=== PATIENT | male | born 1970 | race Caucasian/White ===

== ENCOUNTER 2018-02-05 05:48 | Inpatient (IN) | payer OTHER ==
[~2018-02-05] VITALS: Ht 167.6 cm; Wt 97.5 kg
[2018-02-05] MEDS ORDERED: CEFAZOLIN SODIUM 1 GM/D5W PM 50 ML IV SCH (07:05)
[2018-02-05] MEDS ORDERED: OMEP20TC12 PO (07:08)
[2018-02-05] MEDS ORDERED: ALLO300T28 PO (07:08)
[2018-02-05] MEDS ORDERED: SEVOFLURANE 250 ML BTL INH ONE (07:30)
[2018-02-05] MEDS ORDERED: ONDANSETRON 4 MG/2 ML VIAL IVP ONE (07:30)
[2018-02-05] MEDS ORDERED: DEXAMETHASONE 4 MG/ML VIAL IVP ONE (07:30)
[2018-02-05] MEDS ORDERED: SUCCINYLCHOLINE CHLORIDE 200 MG/10 ML VIAL IV ONE (07:30)
[2018-02-05] MEDS ORDERED: KETOROLAC 30 MG/ML VIAL IVP ONE (07:30)
[2018-02-05] MEDS ORDERED: PROPOFOL 200 MG/20 ML VIAL IV ONE (07:30)
[2018-02-05] MEDS ORDERED: BUPIVACAINE-MPF/EPI 0.5% 30 ML VIAL INJ ONE (07:38)
[2018-02-05] MEDS ORDERED: ceFAZolin 1,000 MG VIAL ONE (07:39)
[2018-02-05] MEDS ORDERED: MIDAZOLAM 2 MG/2 ML VIAL ONE (07:41)
[2018-02-05] MEDS ORDERED: MEPERIDINE 50 MG/ML SYR ONE (07:42)
[2018-02-05] MEDS ORDERED: fentaNYL 0.05 MG/ML VIAL ONE (07:42)
[2018-02-05] MEDS ORDERED: LACTATED RINGERS 1,000 ML IV SCH (08:07)
[2018-02-05] MEDS ORDERED: HYDROmorphone 1 MG/ML AMP IVP PRN ×2 (08:10→11:15)
[2018-02-05] MEDS ORDERED: MEPERIDINE 25 MG/ML SYR IVP PRN (08:10)
[2018-02-05] MEDS ORDERED: diphenhydrAMINE 50 MG/ML VIAL IVP PRN (08:10)
[2018-02-05] MEDS ORDERED: ONDANSETRON 4 MG/2 ML VIAL IVP PRN (08:10)
[2018-02-05] MEDS: NACL 0.9% 1,000 ML IV SCH (11:13)
[2018-02-05] MEDS ORDERED: MORPHINE SULFATE 2 MG/ML SYR IVP PRN (11:15)
[2018-02-05] MEDS ORDERED: HYDROcodone/APAP 5/325 MG 1 TAB TAB PO PRN (11:15)
[2018-02-05] MEDS ORDERED: ONDANSETRON 4 MG/2 ML VIAL IV PRN (11:15)
[2018-02-05 12:32] VITALS: BP 116/71
[2018-02-05] MEDS: CEFAZOLIN SODIUM 1 GM/D5W PM 50 ML IV SCH ×2 (13:26→21:04)
[2018-02-05 16:00] VITALS: BP 107/65
[2018-02-06] VITALS: BP 114/62
[2018-02-06] MEDS: MORPHINE SULFATE 4 MG/ML SYR IV PRN ×2 (01:14→08:09)
[2018-02-06 08:00] VITALS: BP 104/59
[2018-02-06 08:02] LABS: CARBON DIOXIDE 27.2 mmol/L (21-32); CREATININE 0.9 mg/dL (0.7-1.3); POTASSIUM 4.2 mmol/L (3.5-5.1); TOTAL BILIRUBIN 0.8 mg/dL (0.0-1.0)
[2018-02-06 08:05] LABS: BASOPHILS % (AUTO) 0.1 % (0.0-2.0); EOSINOPHILS % (AUTO) 0.1 % (0.0-4.0); HEMATOCRIT 40.5 % (36-52); HEMOGLOBIN 13.8 g/dL (12.0-18.0); LYMPHOCYTES # (AUTO) 1.2 K/uL (2.0-11.5); MEAN CORPUSCULAR HEMOGLOBIN 31 pg (27-31); MEAN CORPUSCULAR HGB CONC 34 g/dL (33-37); MONOCYTES # (AUTO) 0.7 K/uL (0.8-1.0); MONOCYTES % (AUTO) 6.6 % (1.7-9.3); NEUTROPHILS # (AUTO) 8.7 K/uL (1.8-7.7); NEUTROPHILS % (AUTO) 82.2 % (42.2-75.2); PLATELET COUNT (AUTO) 128 K/uL (140-450); RED CELL DISTRIBUTION WIDTH 13.9 % (11.6-13.7); WHITE BLOOD COUNT (AUTO) 10.6 K/uL (4.8-10.8)
[2018-02-06] MEDS: NACL 0.9% 1,000 ML IV SCH (08:06)
[2018-02-06] MEDS ORDERED: ACET-5629 PO (12:15)
== END 2018-02-06 12:55 | disposition home or self-care (01) | DRG 227 ==
LOC: MDS 05:48 → MMU 06:02 → MTU 11:25 → MDS 11:25 → MTU 11:51
PROVIDERS: ADMIT Surgery; ATTEND Surgery
PROC: 0WUF0JZ Supplement Abdominal Wall with Synthetic Substitute, Open Approach (ICD-10-PCS; 2018-02-05)
PROC: 0YU60JZ Supplement Left Inguinal Region with Synthetic Substitute, Open Approach (ICD-10-PCS; principal; 2018-02-05 07:30)
DX: K40.30 Unilateral inguinal hernia, with obstruction, without gangrene, not specified as recurrent (principal); E83.51 Hypocalcemia; K42.9 Umbilical hernia without obstruction or gangrene; K21.9 Gastro-esophageal reflux disease without esophagitis; Z96.651 Presence of right artificial knee joint; E66.9 Obesity, unspecified; Z68.34 Body mass index [BMI] 34.0-34.9, adult
CPT/HCPCS: 36415; 71045; 80053; 85025; 87081; C1781; J0330; J0690; J1100; J1885; J2175; J2250; J2270; J2405; J2704; J3010; J3490; J7030; J7120